=== PATIENT | male | born 1935 | race Caucasian/White ===

== ENCOUNTER 2016-11-12 14:35 | Emergency (ER) | payer MEDICARE, OTHER ==
[2016-11-12 14:45] VITALS: RESP 16; O2SAT 94
[2016-11-12] MEDS ORDERED: NS 500 ML IV ONE ×2 (15:58→17:07)
--- NOTE | 2016-11-12 15:58 | EDPHY ---
H & P Stated Complaint: poss uti, fever at [facility], dysuria HPI/ROS: HPI CHIEF COMPLAINT: Possible urinary tract infection HISTORY OF PRESENT ILLNESS: This patient very pleasant 81-year-old male significant past medical history for dementia, lives at [facility]. His was contacted this morning as the staff at [facility] was concerned that he may have a urinary tract infection as he appeared to be uncomfortable and pulling at his genitals. They did take his temperature report that he had a temperature 102 degrees. They gave him Tylenol prior to arrival. This was at 8:30 a.m. this morning. It is now 4 o'clock in the afternoon he arrives to the emergency room by private vehicle with his . He is a DNR. Comfort measures only. According to the DNR no antibiotics to be given, no aggressive measures only comfort measures. However further discussion with the she is okay with p.o. antibiotics if need be if he has a urinary tract infection. Upon arrival here in emergency room the patient does have dementia tells me has no complaints. He is, cooperative. at bedside. Past Medical History: Dementia, hypertension Past Surgical History: No recent surgical history Social History: Lives at [facility]. Family History: Noncontributory ROS REVIEW OF SYSTEMS: A comprehensive 10 point review of systems is otherwise negative aside from elements mentioned in the history of present illness. Exam Constitutional Appears well nontoxic, triage nursing summary reviewed, vital signs reviewed, awake/alert. Eyes normal conjunctivae and sclera, EOMI, PERRLA. HENT normal inspection, atraumatic, moist mucus membranes, no epistaxis, neck supple/ no meningismus, no raccoon eyes. Respiratory clear to auscultation bilaterally, normal breath sounds, no respiratory distress, no wheezing. Cardiovascular rate normal, regular rhythm, no murmur, no edema, distal pulses normal. Gastrointestinal soft, non-tender, no rebound, no guarding, normal bowel sounds, no distension, no pulsatile mass. Genitourinary no CVA tenderness. General exam performed by myself with Serina MELENDEZ and at bedside. Circumcised, normal descended testicles. Musculoskeletal no midline vertebral tenderness, full range of motion, no calf swelling, no tenderness of extremities, no meningismus, good pulses, neurovascularly intact. Skin pink, warm, & dry, no rash, skin atraumatic. Neurologic awake, alert and oriented x 3, AAOx3, moves all 4 extremities equally, motor intact, sensory intact, CN II-XII intact, normal cerebellar, normal vision, normal speech. Psychiatric normal mood/affect. Heme/Lymph/Immune no lymphadenopathy. Differential Diagnosis: Includes but is not limited to in a particular order, urinary tract infection, urosepsis, electrolyte disturbance, dementia Medical Decision Making: Plan for this patient will establish an IV check basic blood work, and obtain a urinalysis. I did perform general exam was unremarkable no evidence of torsion, normal testicular lie, no evidence of lesion or signs of infection on general exam. Re-evaluation: 172: RE-EVALUATION AT THIS TIME AT BEDSIDE REQUESTING DISCHARGE. PATIENT DOES HAVE A URINALYSIS THAT INDICATES THE PATIENT HAS A URINARY TRACT INFECTION RECEIVED 1 G IV ROCEPHIN HERE IN THE EMERGENCY ROOM. I PRESCRIBED KEFLEX FOR HOME WELL PERIDIUM TO HELP THIS DISCOMFORT. IT IS NOTED THE BUN AND CREATININE IS ELEVATED. HE DID RECEIVE 500 CC OF FLUID HERE IN EMERGENCY ROOM I DID REQUEST THE PATIENT GETS ANOTHER 500 CC HOWEVER AT THE 'S REQUEST WHO HAS HEALTH CARE [id number] THEY WOULD LIKE TO BE DISCHARGED WITHOUT THE 2ND BOLUS OF FLUID. SHE UNDERSTANDS TO HAVE HIM DRINK LOTS OF FLUIDS AND INCREASE HIS FLUID INTAKE AT HIS RESIDENCE. RETURN EMERGENCY ROOM IF THERE IS ANY WORSENING SYMPTOMS INCLUDING HIGH FEVER, VOMITING. URINE CULTURES BEEN SENT. BLOOD WORK REVIEWED. AFEBRILE HERE NONTOXIC. Source: Patient - Personal History Current Tetanus/Diphtheria Vaccine: Unsure Current Tetanus Diphtheria and Acellular Pertussis (TDAP): Unsure - Medical/Surgical History Hx Asthma: No Hx Chronic Respiratory Disease: No Hx Diabetes: No Hx Cardiac Disease: No Hx Renal Disease: No Hx Cirrhosis: No Hx Alcoholism: No Hx HIV/AIDS: No Hx Splenectomy or Spleen Trauma: No Other PMH: Hernia, HTN. dementia--[facility] resident - Social History Smoking Status: Never smoked Constitutional: Initial Vital Signs Temperature (C) 36.7 C 11/12/16 14:43 Heart Rate 81 11/12/16 14:43 Respiratory Rate 16 11/12/16 14:43 Blood Pressure 115/80 11/12/16 14:43 O2 Sat (%) 94 11/12/16 14:43 O2 Delivery Mode Room Air Allergies/Adverse Reactions: meperidine HCl [From Demerol] Allergy (Severe, Verified 02/15/14 20:13) resp arrest/cardiac arrest Home Medications: Medication Instructions Recorded ALLOPURINOL [Allopurinol 100 mg] 100 mg PO BID 08/03/11 Alignprobiotic 4 mg PO PRN PRN 08/03/11 Ascorbic Acid [Vitamin C] 500 mg PO DAILY 08/03/11 Avodart 0.5 mg PO .EVERY 2 DAYS 08/03/11 Calcium Citrate/Vitamin D3 1 each PO DAILY 08/03/11 [Calcium Citrate - Vit D Caplet] Cerefolin Nac 1 cap PO DAILY 08/03/11 Garlic 1,250 mg PO HS 08/03/11 Glucosamine Sulfate/MSM 1 each PO BID 08/03/11 [Glucosamine-Msm 500-400 Mg Cap] Irbesartan [Avapro] 150 mg PO DAILY 08/03/11 MAGNESIUM [Magnesium Oxide] 1 tab PO DAILY 08/03/11 Multivitamin [Daily Multiple 1 each PO DAILY 08/03/11 Vitamin] [place]-3/Dha/Epa/Fish Oil [Fish Oil 1 each PO BID 08/03/11 1,000 mg EC Softgel] Terazosin HCl [Hytrin] 5 mg PO HS 08/03/11 Urocit-K Sr 5 meq PO DAILY 08/03/11 Vit E 400 iunits PO DAILY 08/03/11 Zinc Gluconate [Zinc Chelated] 5 mg PO DAILY8 08/03/11 Zolpidem Tartrate [Ambien] 5 mg PO HSPRN PRN 08/03/11 traZODone [traZODONE 100MG (*)] 100 mg PO HS 08/03/11 Ciprofloxacin [Cipro] 500 mg PO BID #14 tab 02/15/14 Ondansetron Odt [Zofran Odt 4 mg 4 mg PO Q4 PRN #20 tab 02/15/14 (RX)] Oxycodone HCl/Acetaminophen 1 each PO Q6-8PRN #10 tablet 02/15/14 [Percocet 10-325 mg Tablet] Tamsulosin HCl [Flomax 0.4 MG (RX)] 0.4 mg PO DAILY #10 cap 02/15/14 Cephalexin [Keflex] 500 mg PO Q6H #28 cap 11/12/16 Phenazopyridine HCl [Pyridium] 200 mg PO TID #7 tab 11/12/16 Medical Decision Making - Data Points Laboratory Results: Laboratory Results 11/12/16 16:12 11/12/16 16:12 11/12/16 11/12/16 11/12/16 16:15 16:12 16:12 WBC 10.37 10^3/uL H 10^3/uL (3.80-9.50) RBC 4.33 10^6/uL L 10^6/uL (4.40-6.38) Hgb 13.4 g/dL L g/dL (13.7-17.5) Hct 40.5 % % (40.0-51.0) MCV 93.5 fL fL (81.5-99.8) MCH 30.9 pg pg (27.9-34.1) MCHC 33.1 g/dL g/dL (32.4-36.7) RDW 13.1 % % (11.5-15.2) Plt Count 205 10^3/uL 10^3/uL (150-400) MPV 10.6 fL fL (8.7-11.7) Neut % (Auto) 80.1 % H % (39.3-74.2) Lymph % (Auto) 6.7 % L % (15.0-45.0) [place] % (Auto) 12.5 % % (4.5-13.0) Eos % (Auto) 0.0 % L % (0.6-7.6) Baso % (Auto) 0.2 % L % (0.3-1.7) Nucleat RBC Rel Count 0.0 % % (0.0-0.2) Absolute Neuts (auto) 8.31 10^3/uL H 10^3/uL (1.70-6.50) Absolute Lymphs (auto) 0.69 10^3/uL L 10^3/uL (1.00-3.00) Absolute Monos (auto) 1.30 10^3/uL H 10^3/uL (0.30-0.80) Absolute Eos (auto) 0.00 10^3/uL L 10^3/uL (0.03-0.40) Absolute Basos (auto) 0.02 10^3/uL 10^3/uL (0.02-0.10) Absolute Nucleated RBC 0.00 10^3/uL 10^3/uL (0-0.01) Immature Gran % 0.5 % % (0.0-1.1) Immature Gran # 0.05 10^3/uL 10^3/uL (0.00-0.10) Sodium 141 mEq/L mEq/L (134-144) Potassium 3.9 mEq/L mEq/L (3.5-5.2) Chloride 105 mEq/L mEq/L (97-110) Carbon Dioxide 24 mEq/l mEq/l (22-31) Anion Gap 12 mEq/L mEq/L (8-16) BUN 38 mg/dL H mg/dL (7-23) Creatinine 1.7 mg/dL H mg/dL (0.7-1.3) Estimated GFR 39 Glucose 122 mg/dL H mg/dL (70-100) Calcium 9.9 mg/dL mg/dL (8.5-10.4) Urine Color YELLOW Urine Appearance MODERATELY TURBID Urine pH 5.0 (5.0-7.5) Ur Specific [place] 1.013 (1.002-1.030) Urine Protein 2+ H (NEGATIVE) Urine Ketones NEGATIVE (NEGATIVE) Urine Blood 1+ H (NEGATIVE) Urine Nitrate NEGATIVE (NEGATIVE) Urine Bilirubin NEGATIVE (NEGATIVE) Urine Urobilinogen NEGATIVE EU EU (0.2-1.0) Ur Leukocyte Esterase 3+ H (NEGATIVE) Urine RBC 15-25 /hpf H /hpf (0-3) Urine WBC 50-182 /hpf H /hpf (0-3) Ur Epithelial Cells NONE SEEN /lpf /lpf (NONE-1+) Urine Bacteria TRACE /hpf H /hpf (NONE SEEN) Urine Mucus NONE SEEN /lpf /lpf (NONE-1+) Ur Culture Indicated? INDICATED H (NI) Urine Glucose NEGATIVE (NEGATIVE) Medications Given: Discontinued Medications Ceftriaxone Sodium/Dextrose (Rocephin 1 Gm (Premix)) 50 mls @ 100 mls/hr IV EDNOW ONE PRN Reason: Protocol Stop: 11/12/16 17:07 Last Admin: 11/12/16 17:00 Dose: 50 mls Departure - Departure Disposition: Home, Routine, Self-Care Clinical Impression: Urinary tract infection Qualifiers: Urinary tract infection type: acute cystitis Hematuria presence: with hematuria Qualified Code(s): N30.01 - Acute cystitis with hematuria Condition: Good Instructions: Urinary Tract Infection in Men (ED) Additional Instructions: 1. Drink lots of fluids. 2. Take antibiotics as prescribed. 3. Return to the Emergency Department if he has worsening symptoms, questions, or concerns. Referrals: Shanti Yoder MD [Primary Care Provider] - As per Instructions Prescriptions: Cephalexin [Keflex] 500 mg PO Q6H #28 cap Phenazopyridine HCl [Pyridium] 200 mg PO TID #7 tab
[2016-11-12 16:27] LABS: COLOR YELLOW; LEUKOCYTE ESTERASE,URINE 3+ (NEGATIVE); NITRITE,URINE NEGATIVE (NEGATIVE)
[2016-11-12 16:31] LABS: % IMMATURE GRANULYOCYTES 0.5 % (0.0-1.1); ABSOLUTE IMMATURE GRANULOCYTES 0.05 10^3/uL (0.00-0.10); ADD DIFF? NO; ADD MORPH? NO; ADD SCAN? NO; ATYPICAL LYMPHOCYTE FLAG 0 (0-99); FRAGMENT RBC FLAG 0 (0-99); HEMATOCRIT 40.5 % (40.0-51.0); HEMOGLOBIN 13.4 g/dL (13.7-17.5); LEFT SHIFT FLG 10 (0-99); LIPEMIA HEMOLYSIS FLAG 80 (0-99); MEAN CELL HEMOGLOBIN 30.9 pg (27.9-34.1); MEAN CELL HEMOGLOBIN CONCENTR. 33.1 g/dL (32.4-36.7); MEAN CELL VOLUME 93.5 fL (81.5-99.8); MEAN PLATELET VOLUME 10.6 fL (8.7-11.7); PLATELET CLUMPS FLAG 30 (0-99); PLATELET COUNT 205 10^3/uL (150-400); RED BLOOD CELL COUNT 4.33 10^6/uL (4.40-6.38); RED CELL DISTRIBUTION WIDTH 13.1 % (11.5-15.2)
[2016-11-12 16:37] VITALS: BP 150/82; PULSE 65; TEMP 98.2
[2016-11-12 16:37] LABS: BACTERIA TRACE /hpf (NONE SEEN); RBC,URINE 15-25 /hpf (0-3); WBC,URINE 50-182 /hpf (0-3)
[2016-11-12 16:39] LABS: MUCUS NONE SEEN /lpf (NONE-1+)
[2016-11-12 16:43] LABS: ANION GAP 12 mEq/L (8-16); CALCIUM 9.9 mg/dL (8.5-10.4); CARBON DIOXIDE 24 mEq/l (22-31); CHLORIDE 105 mEq/L (97-110); CREATININE 1.7 mg/dL (0.7-1.3); GLOMERULAR FILTRATION RATE 39; GLUCOSE 122 mg/dL (70-100); POTASSIUM 3.9 mEq/L (3.5-5.2); SODIUM 141 mEq/L (134-144)
== END 2016-11-12 17:31 | disposition home or self-care (01) ==
DX: N30.01 Acute cystitis with hematuria (principal); B96.89 Other specified bacterial agents as the cause of diseases classified elsewhere; I10 Essential (primary) hypertension
CPT/HCPCS: 96361; 96365; 99284; J0696